=== PATIENT | female | born 1980 | race African-American/Black ===

== ENCOUNTER 2018-09-30 22:44 | Emergency (ER) | payer MEDICAID, OTHER ==
[~2018-09-30] VITALS: Ht 167.6 cm; Wt 73.0 kg
[2018-10-01] MEDS ORDERED: KETOROLAC 30MG/ML VIAL IV ONE (06:45)
[2018-10-01 07:00] VITALS: BP 181/90
== END 2018-10-01 06:57 | disposition home or self-care (01) ==
LOC: ER 22:55
DX: K02.9 Dental caries, unspecified (principal); F17.200 Nicotine dependence, unspecified, uncomplicated
CPT/HCPCS: 96374; 99283; J1885

== ENCOUNTER 2020-02-08 18:06 | Emergency (ER) | payer MEDICAID ==
[~2020-02-08] VITALS: Ht 167.6 cm; Wt 75.0 kg
[2020-02-08] MEDS ORDERED: MORPHINE SULFATE 4 MG/ML CPJ (NOT FOR IM USE) IV STA (18:31)
[2020-02-08] MEDS ORDERED: ONDANSETRON HCL 4MG/2ML INJ IV ONE (18:45)
[2020-02-08] MEDS ORDERED: KETAMINE HCL 50 MG/ML 10ML IV ONE (18:45)
[2020-02-08 21:35] VITALS: BP 170/87
== END 2020-02-08 23:21 | disposition home or self-care (01) ==
LOC: ER 18:06
DX: S82.892A Other fracture of left lower leg, initial encounter for closed fracture (principal); W50.2XXA Accidental twist by another person, initial encounter; Y93.89 Activity, other specified; Y92.89 Other specified places as the place of occurrence of the external cause; Y99.8 Other external cause status
CPT/HCPCS: 27840; 73590; 73600; 73610; 73630; 96374; 96375; 99152; 99285; J2270; J2405; J3490

== ENCOUNTER 2022-06-12 04:59 | Emergency (ER) | payer MEDICAID, OTHER ==
[~2022-06-12] VITALS: Ht 170.2 cm; Wt 77.0 kg
[2022-06-12 05:07] VITALS: BP 120/80
== END 2022-06-12 09:50 | disposition left against medical advice (07) ==
LOC: ER 04:59
DX: S09.8XXA Other specified injuries of head, initial encounter (principal); Y04.8XXA Assault by other bodily force, initial encounter; Y93.89 Activity, other specified; Y92.810 Car as the place of occurrence of the external cause
CPT/HCPCS: 99281

== ENCOUNTER 2022-06-12 10:34 | Emergency (ER) | payer MEDICAID, OTHER ==
[~2022-06-12] VITALS: Ht 167.6 cm; Wt 77.0 kg
[2022-06-12 10:43] VITALS: BP 129/84
== END 2022-06-12 18:40 | disposition home or self-care (01) ==
LOC: ER 10:34
DX: S09.8XXA Other specified injuries of head, initial encounter (principal); J34.89 Other specified disorders of nose and nasal sinuses; Y04.8XXA Assault by other bodily force, initial encounter; Y93.89 Activity, other specified; Y92.810 Car as the place of occurrence of the external cause
CPT/HCPCS: 70486; 81025; 99284